=== PATIENT | female | born 1960 | race Caucasian/White ===

== ENCOUNTER 2017-07-16 09:03 | Day surgery (SDC) | payer OTHER ==
[2017-07-16] MEDS ORDERED: PROPOFOL 60 ML (10:15)
== END 2017-07-16 10:51 | disposition home or self-care (01) ==
LOC: GIL 09:03
DX: Z12.11 Encounter for screening for malignant neoplasm of colon (principal); D12.5 Benign neoplasm of sigmoid colon; K57.90 Diverticulosis of intestine, part unspecified, without perforation or abscess without bleeding; K64.8 Other hemorrhoids; J44.9 Chronic obstructive pulmonary disease, unspecified
CPT/HCPCS: 45385; 88305